=== PATIENT | male | born 1970 | race Caucasian/White ===

== ENCOUNTER 2018-12-19 16:43 | Emergency (ER) | payer OTHER, BC ==
[2018-12-19] MEDS ORDERED: KETOROLAC 60 MG/2 ML VIAL IM STA (17:15)
[2018-12-19] MEDS ORDERED: CHERRY SYRUP 10 ML UDC PO ONE (17:15)
[2018-12-19] MEDS ORDERED: DEXAMETHASONE 10 MG/ML VIAL PO STA (17:15)
--- NOTE | 2018-12-19 17:34 | ED Physician Documentation ---
PD HPI UPPER EXT INJURY - Stated complaint Stated Complaint: RT ARM INJURY - Chief complaint Chief Complaint: Back Pain - History obtained from History obtained from: Patient, Family - History of Present Illness Location: Right, Shoulder Type of injury: Other (repetative use at work.) Where injury occurred: Work Timing - onset: How many months ago (2) Timing - duration: Months (2) Timing - details: Gradual onset, Still present, Other (now much worse) Improved by: Rest, Immobilization Worsened by: Moving, Palpating Associated symptoms: No: Weakness, Numbness, Tingling, Swelling Contributing factors: Anticoagulated Similar symptoms before: No diagnosis Recently seen: Not recently seen - Additonal information Additional information: 48-year-old male with a factor V Leiden deficiency who is on Xarelto 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 He has complained of some pain in his right shoulder for the past 2 months that is waxing and waning and today his pain is completely intolerable he is not able to move his arm at all. He is not able to work right now. He does not know of any specific injury other than the repetitive use of his arm. He does know that when he has been home over the weekend he has had some improvement in his pain it is progressively worsened and he is now barely able to move his arm. Review of Systems Constitutional: denies: Fever Eyes: denies: Decreased vision Ears: denies: Ear pain Nose: denies: Rhinorrhea / runny nose, Congestion Throat: denies: Sore throat Respiratory: denies: Dyspnea, Cough GI: denies: Abdominal Pain, Nausea, Vomiting : denies: Dysuria, Frequency Skin: denies: Rash Musculoskeletal: reports: Extremity pain, Joint pain. denies: Neck pain, Back pain Neurologic: denies: Generalized weakness, Focal weakness, Numbness PD PAST MEDICAL HISTORY - Present Medications Home Medications: Ambulatory Orders Medication Instructions Recorded Confirmed Atorvastatin [Lipitor] 40 mg 12/19/18 Bupropion HCl [Bupropion Xl] 150 mg PO 12/19/18 Hydrocodone/Acetaminophen 1 - 2 each PO Q6H PRN #14 tablet 12/19/18 [Hydrocodon-Acetaminophen 5-325] Rivaroxaban [Xarelto] 20 mg PO 12/19/18 12/19/18 - Allergies Allergies/Adverse Reactions: Allergies Allergy/AdvReac Type Severity Reaction Status Date / Time No Known Drug Allergies Allergy Verified 12/19/18 16:48 PD ED PE NORMAL - Vitals Vital signs reviewed: Yes (hypertensive ) - General General: Alert and oriented X 3, No acute distress, Well developed/nourished - HEENT HEENT: Atraumatic, PERRL - Neck Neck: Supple, no meningeal sign - Respiratory Respiratory: No respiratory distress - Derm Derm: Normal color, Warm and dry, No rash - Extremities Extremities: No deformity, No edema, Other (There is anterior fullness to the right deltoid that is tender. There is restricted motion of the shoulder joint secondary to pain. The distal n/v is intact. ) - Neuro Neuro: Alert and oriented X 3, call out operator 2-12 intact, No motor deficit, No sensory deficit, Normal speech Eye Opening: Spontaneous Motor: Obeys Commands Verbal: Oriented GCS Score: 15 - Psych Psych: Normal mood, Normal affect Results - Vitals Vitals: Vital Signs - 24 hr 12/19/18 16:46 Temperature 36.6 C Heart Rate 78 Respiratory 20 Rate Blood Pressure 141/83 H O2 Saturation 97 Oxygen O2 Source Room air PD MEDICAL DECISION MAKING - ED course Complexity details: considered differential, d/w patient, d/w family ED course: 48-year-old male with a right shoulder bursitis from overuse at work is administered dexamethasone 10 mg and Toradol 60 mg IM. X-ray of the shoulder is obtained. Departure - Departure Disposition: 01 Home, Self Care Clinical Impression: Bursitis of right shoulder Instructions: ED Bursitis Follow-Up: [facility] [Provider Group] Prescriptions: Hydrocodone/Acetaminophen [Hydrocodon-Acetaminophen 5-325] 1 - 2 each PO Q6H PRN #14 tablet PRN Reason: pain Forms: Activity restrictions
[2018-12-19 18:06] VITALS: BP 132/87
--- NOTE | 2018-12-19 18:21 | XRAY Report ---
Reason: pain with excessive repetative movement. Procedure Date: 12/19/2018 Accession Number: [id number] / [id number] Procedure: XR - Shoulder 3 View RT CPT Code: FULL RESULT: EXAM: RIGHT SHOULDER RADIOGRAPHY EXAM DATE: 12/19/2018 05:41 PM. CLINICAL HISTORY: Pain with excessive repetitive movement. COMPARISON: None. TECHNIQUE: 3 views. FINDINGS: Bones: No acute fracture or suspicious bone lesion. Joints: The glenohumeral joint is unremarkable. 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 Soft tissues: The partially imaged lung is unremarkable. IMPRESSION: No acute radiographic abnormalities. 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 [facility]
== END 2018-12-19 18:06 | disposition home or self-care (01) ==
LOC: ED 16:43
DX: M70.811 Other soft tissue disorders related to use, overuse and pressure, right shoulder (principal); M75.51 Bursitis of right shoulder; Y93.89 Activity, other specified; Y92.89 Other specified places as the place of occurrence of the external cause; Y99.0 Civilian activity done for income or pay; D68.51 Activated protein C resistance; Z79.01 Long term (current) use of anticoagulants
CPT/HCPCS: 96372; 99283